=== PATIENT | female | born 2005 | race Caucasian/White ===

== ENCOUNTER 2024-08-12 21:56 | Emergency (ER) | payer BC ==
[~2024-08-12] VITALS: Ht 157.5 cm; Wt 54.5 kg
[2024-08-12 22:10] VITALS: BP 118/75; TEMP 98.2
[2024-08-12 23:31] LABS: PH 5.5 (5.0-8.5); URINE APPEARANCE CLOUDY (CLEAR/HAZY); URINE BLOOD 2+ (NEGATIVE); URINE COLOR YELLOW (YELLOW); URINE GLUCOSE NEGATIVE (NEGATIVE); URINE KETONE TRACE (NEGATIVE); URINE NITRATE NEGATIVE (NEGATIVE); URINE PROTEIN(semi-quant) 3+ (NEGATIVE)
[2024-08-12 23:43] LABS: COLLECTION METHOD CLEAN CATCH
[2024-08-12] MEDS ORDERED: Cephalexin 500 MG CAP PO ONE (23:45)
[2024-08-12] MEDS ORDERED: CEPHALEXIN500 M1 PO (23:57)
[2024-08-13 00:44] VITALS: PULSE 88
== END 2024-08-13 00:44 | disposition home or self-care (01) ==
LOC: COL.ER 21:56
PROVIDERS: Emergency Medicine
DX: N30.91 Cystitis, unspecified with hematuria (principal)